=== PATIENT | male | born 1995 | race Caucasian/White ===

== ENCOUNTER 2021-02-09 13:20 | Day surgery (SDC) | payer OTHER ==
[2021-02-08 09:30] VITALS: BMI 24.3
[2021-02-09] MEDS ORDERED: MIDAZOLAM HCL 2 MG/2 ML SINGLE DOSE VIAL ONE ×2 (15:27)
[2021-02-09] MEDS ORDERED: fentaNYL CITRATE 250 MCG/5 ML VIAL ONE (15:27)
[2021-02-09] MEDS ORDERED: ROPIVACAINE HCL 0.5% 30ML VIAL ONE (15:29)
[2021-02-09] MEDS ORDERED: ONDANSETRON 4 MG/2 ML VIAL IVPUSH PRN (16:08)
[2021-02-09] MEDS ORDERED: oxyCODONE HCL 5 MG TABLET PO PRN (16:08)
[2021-02-09] MEDS ORDERED: LACTATED RINGERS SOLUTION 1,000 ML IV SCH (16:15)
[2021-02-09] MEDS ORDERED: ONDANSETRON 4 MG/2 ML VIAL ONE (17:34)
[2021-02-09] MEDS ORDERED: oxyCODONE HCL 5 MG TABLET ONE (18:01)
[2021-02-09 18:41] VITALS: TEMP 97.8
[2021-02-09 18:58] VITALS: BP 132/83; PULSE 82
== END 2021-02-09 18:57 | disposition home or self-care (01) ==
LOC: FASU 13:20
PROVIDERS: ATTEND Orthopaedic Surgery Hand Surgery
PROC: 0RQP0ZZ Repair Left Wrist Joint, Open Approach (ICD-10-PCS; 2021-02-09)
PROC: 0RBP4ZZ Excision of Left Wrist Joint, Percutaneous Endoscopic Approach (ICD-10-PCS; principal; 2021-02-09 16:09)
DX: S63.522A Sprain of radiocarpal joint of left wrist, initial encounter (principal); X58.XXXA Exposure to other specified factors, initial encounter; Y93.9 Activity, unspecified; Y92.9 Unspecified place or not applicable
CPT/HCPCS: 94760